=== PATIENT | female | born 2005 | race African-American/Black ===

== ENCOUNTER 2024-03-07 02:51 | Emergency (ER) | payer SELFPAY ==
[2024-03-07] MEDS ORDERED: Ondansetron ODT 4 MG TAB ONE (03:36)
[2024-03-07] MEDS ORDERED: Loperamide HCl 2 MG CAP ONE (03:36)
== END 2024-03-07 04:53 | disposition home or self-care (01) ==
LOC: CSHERS 02:51
DX: R11.2 Nausea with vomiting, unspecified (principal); R19.7 Diarrhea, unspecified
CPT/HCPCS: 99283; Q0162